=== PATIENT | male | born 2000 | race Caucasian/White ===

== ENCOUNTER → 2021-06-15 | Outpatient (CLI) | payer BC ==
[2021-06-15 18:58] LABS: Basophils # (A) 0.04 X 10*3/uL (0.00-0.10); Eosinophils % (A) 2.5 %; HCT 47.3 % (39.6-50.0); HGB 15.6 g/dL (13.0-17.0); Lymphocytes % (A) 37.6 %; MCH 31.8 pg (27.0-32.0); MCV 96.3 fL (80.0-97.0); Mean Platelet Volume 10.1 fL (9.5-12.2); Monocytes # (A) 0.46 X 10*3/uL (0.20-1.00); Monocytes % (A) 11.5 %; Neutrophils # (A) 1.87 X 10*3/uL (1.80-7.70); Neutrophils % (A) 46.9 %; Platelet Count 246 X 10*3/uL (140-440); RBC 4.91 X 10*6/uL (4.40-5.60); RDW 12.1 % (11.5-14.5); WBC 3.99 X 10*3/uL (4.50-10.00)
[2021-06-15 19:15] LABS: ALT 16 U/L (10-49); AST 19 U/L (14-35); Albumin 4.9 g/dL (3.8-4.9); Albumin/Globulin Ratio 1.96 (1.60-3.17); Alkaline Phosphatase 59 U/L (41-126); BUN/Creat Ratio 14.64 Ratio (12.00-20.00); Blood Urea Nitrogen 11.9 mg/dL (9.0-27.0); Calcium 9.8 mg/dL (8.7-10.3); Carbon Dioxide 26.1 mmol/L (20.0-27.5); Chloride 103 mmol/L (96-109); Globulin 2.5 g/dL (1.6-3.3); Glucose 96 mg/dL (70-110); Non-African American GFR(CKD) 125.1 (60.0-200.0); Potassium 4.2 mmol/L (3.5-5.5); Sodium 142 mmol/L (135-145); Total Protein 7.4 g/dL (6.2-8.2)
[2021-06-15 19:59] LABS: Erythrocyte Sedimentation Rate 1 mm/Hr (0-15)
[2021-06-15 20:17] LABS: C Reactive Protein <0.30 mg/dL (0.00-0.80)
[2021-06-17 09:52] LABS: Gliadin AB IgA, Deaminated NEGATIVE (NEGATIVE); Gliadin AB IgA, Unit 0.3 U/mL; Gliadin AB IgG, Deaminated NEGATIVE (NEGATIVE)
== END | disposition home or self-care (01) ==
LOC: LABWHC1 11:24
PROVIDERS: ATTEND Internal Medicine Gastroenterology
DX: K52.9 Noninfective gastroenteritis and colitis, unspecified (principal)
CPT/HCPCS: 36415; 80053; 83516; 85025; 85652; 86140

== ENCOUNTER 2022-10-30 09:32 | Day surgery (SDC) | payer BC ==
[2022-10-27 12:39] VITALS: BMI 16.9
[~2022-10-30 09:32] MED LIST: LACTATED RINGERS 1,000 ML IV SCH
[2022-10-30 09:54] VITALS: TEMP 98.8
[2022-10-30] MEDS ORDERED: PROPOFOL 10 MG/ML 20 ML VIAL IV ONE (10:20)
--- NOTE | 2022-10-30 10:24 | P.GSHP ---
History of Present Illness H&P Date: 10/30/22 Chief Complaint: Change in bowel habits, weight loss This a 22-year-old male who's had issues with weight. Patient's had some change in bowel habits with intermittent diarrhea. He is his BMI is 17. Past Medical History Past Medical History: Skin Disorder Additional Past Medical History / Comment(s): Overactive yeast, uses Ketoconazole bodywash. Diarrhea and trouble gaining weight. History of Any Multi-Drug Resistant Organisms: None Reported Past Surgical History: No Surgical Hx Reported Past Anesthesia/Blood Transfusion Reactions: No Reported Reaction Additional Past Anesthesia/Blood Transfusion Reaction / Comment(s): Has never had anesthesia. Additional Psychological History / Comment(s): Painc attacks in past. Smoking Status: Never smoker Past Alcohol Use History: None Reported Past Drug Use History: None Reported - Past Family History Mother Family Medical History: No Reported History Medications and Allergies Home Medications Medication Instructions Recorded Confirmed Type Acetaminophen [Children's 10 - 20 ml PO DIRECTED PRN 10/27/22 10/30/22 History Acetaminophen] Ibuprofen [Children's Motrin Susp] 10 ml PO DIRECTED PRN 10/27/22 10/30/22 History Ketoconazole 2% Shampoo [Nizoral] 1 applic TOPICAL DAILY 10/27/22 10/30/22 History Loratadine/Pseudoephedrine 1 tab PO DAILY 10/27/22 10/30/22 History [Loratadine-D 24Hr Tablet] Mirtazapine 15 mg PO HS 10/27/22 10/30/22 History Multivitamins, Thera [Multivitamin 1 tab PO DAILY 10/27/22 10/30/22 History (formulary)] Psyllium Husk [Metamucil] 0.4 gm PO DAILY 10/27/22 10/30/22 History Allergies Allergy/AdvReac Type Severity Reaction Status Date / Time amoxicillin Allergy Rash/Hives Verified 10/30/22 09:46 Surgical - Exam Vital Signs Temp Pulse Resp BP Pulse Ox 98.8 F 75 16 123/69 99 10/30/22 09:51 10/30/22 09:51 10/30/22 09:51 10/30/22 09:51 10/30/22 09:51 - General well developed, well nourished, no distress - Eyes PERRL - ENT normal pinna, normal nares - Neck no masses - Respiratory normal expansion - Cardiovascular Rhythm: regular - Abdomen Abdomen: soft, non tender Assessment and Plan Assessment: Change in bowel habits, weight loss we'll perform colonoscopy.
--- NOTE | 2022-10-30 10:37 | P.OP ---
Date of Procedure: 10/30/22 Preoperative Diagnosis: Change in bowel habits, weight loss, possible colitis Postoperative Diagnosis: Normal colonoscopy Procedure(s) Performed: Colonoscopy Anesthesia: MAC Surgeon: Bobby Steiner Pathology: none sent Condition: stable Disposition: PACU Description of Procedure: The patient's placed on the endoscopy table in the lateral position. He received IV sedation. Digital rectal exam performed. This revealed no abnormalities. Flexible colonoscope was then placed the patient's anus and pas sed throughout the entire colon. The ileocecal valve was visualized. Cecum, ascending and transverse colon appeared normal. The descending and sigmoid colon appeared normal. Scope summer back the rectum this appeared normal. Scope withdrawn for patient. There is no inflammatory changes seen throughout the colon.
[2022-10-30 10:54] VITALS: BP 102/61; PULSE 75; RESP 18
== END 2022-10-30 11:29 | disposition home or self-care (01) ==
LOC: ORWHC2ENDO 09:32
PROVIDERS: ATTEND Surgery
DX: R19.4 Change in bowel habit (principal); R19.7 Diarrhea, unspecified; R63.4 Abnormal weight loss; F41.1 Generalized anxiety disorder; Z87.2 Personal history of diseases of the skin and subcutaneous tissue; Z79.1 Long term (current) use of non-steroidal anti-inflammatories (NSAID); Z79.2 Long term (current) use of antibiotics; Z79.52 Long term (current) use of systemic steroids; Z88.0 Allergy status to penicillin
CPT/HCPCS: 45378; J2704